=== PATIENT | male | born 1960 | race African-American/Black ===

== ENCOUNTER 2017-05-22 12:56 | Emergency (ER) | payer OTHER ==
[~2017-05-22] VITALS: Ht 188 cm; Wt 72.6 kg
[2017-05-22 13:21] VITALS: BP 129/85
[2017-05-22] MEDS ORDERED: Ipratropium 0.02% Inh Soln 2.5ml UD HHN ONE (13:30)
[2017-05-22] MEDS ORDERED: Albuterol ud Inhalation HHN ONE (13:30)
--- NOTE | 2017-05-22 13:31 | Emergency Room Report ---
History of Present Illness General Chief Complaint: Upper Respiratory Illness Source: Patient Present Illness HPI 56 YO Male presents to the ED c/o chronic cough with clear sputum production intermittently, with wheezing, nasal congestion x 4 weeks. pt. states he is a smoker. Patient states he is been having recurrent episodes of these symptoms for one year. pt. denies having a pcp, he states he visits ED's or urgent cares. Denies fevers or chills. Patient states he is usually given cough medication with inhaler. Patient denies abdominal pain, rashes, neck pain or stiffness, headache. Denies CP, swelling of the lower extremities, Palpitations , LOC, AMS, dizziness, Changes in Vision, Sensation, paresthesias, or a sudden severe headache. Allergies: Coded Allergies: No Known Allergies (Unverified , 05/22/17) Patient History Past Medical History: see triage record Past Surgical History: none Pertinent Family History: none Social History: Reports: smoking Immunizations: UTD Reviewed Nursing Documentation: PMH: Agreed, PSxH: Agreed Nursing Documentation-PMH Hx Cardiac Problems: No - broken foot and ankleon left Hx Gastrointestinal Problems: Yes Review of Systems All Other Systems: negative except mentioned in HPI Physical Exam Vital Signs Date Time Temp Pulse Resp B/P (MAP) Pulse Ox O2 Delivery O2 Flow Rate FiO2 05/22/17 13:07 97.7 106 20 129/85 98 Room Air Sp02 EP Interpretation: reviewed, normal General Appearance: no apparent distress, alert, GCS 15, non-toxic Head: normocephalic, atraumatic Eyes: bilateral eye normal inspection, bilateral eye PERRL ENT: hearing grossly normal, normal voice Neck: full range of motion, supple/symm/no masses Respiratory: no respiratory distress, no accessory muscle use, decreased breath sounds, wheezing - coarse wheezes Cardiovascular #1: regular rate, rhythm, no edema, normal capillary refill, tachycardia Gastrointestinal: normal bowel sounds, non tender, soft, no guarding, no rebound Rectal: deferred Musculoskeletal: back normal, gait/station normal, normal range of motion, non- tender Neurologic: alert, oriented x3, responsive, motor strength/tone normal, sensory intact, speech normal Psychiatric: judgement/insight normal, memory normal, mood/affect normal Skin: normal color, no rash, warm/dry, well hydrated Medical Decision Making PA Attestation Dr. Porter is my supervising Physician whom patient management has been discussed with. Diagnostic Impression: Primary Impression: COPD (chronic obstructive pulmonary disease) Qualified Codes: J42 - Unspecified chronic bronchitis ER Course 56 YO Male presents to the ED c/o chronic cough with clear sputum production intermittently, with wheezing, nasal congestion x 4 weeks. pt. states he is a smoker. Patient states he is been having recurrent episodes of these symptoms for one year. pt. denies having a pcp, he states he visits ED's or urgent cares. Denies fevers or chills. Patient states he is usually given cough medication with inhaler. Patient denies abdominal pain, rashes, neck pain or stiffness, headache. Denies CP, Palpitations, LOC, AMS, dizziness, Changes in Vision, Sensation, paresthesias, or a sudden severe headache. Ddx considered but are not limited to URI, pneumonia, PE, strep pharyngitis, meningitis. Vital signs: Pt.is afebrile VS are WNL, pt. has been saturating above 96% RA H&PE are most consistent with COPD with acute bronchitis ORDERS: -CXR: No consolidation, effusion, pneumothorax or acute cardiopulmonary findings per soft read in ED by Dr. Porter ED INTERVENTIONS: -Nebs HHN - Re-evaluation: pt. lung sounds have improved. -d/w pt. the importance of establishing himself with a pcp, and having pulmonology evaluation. d/w pt. smoking cessation or at minimum reduction. d/w pt. that he will be treated with conservative treatments with close outpatient follow up instructions. He is provided with a list of free/reduced cost clinic information. pt. is given return precautions for worsening of current symptoms, or new symptoms. DISCHARGE: At this time pt. is stable for d/c to home. Will provide printed patient care instructions, and any necessary prescriptions. Care plan and follow up instructions have been discussed with the patient prior to discharge. Last Vital Signs Date Time Temp Pulse Resp B/P (MAP) Pulse Ox O2 Delivery O2 Flow Rate FiO2 05/22/17 13:21 97.7 20 129/85 98 Room Air 05/22/17 13:21 106 Disposition: HOME, SELF-CARE Condition: Stable Scripts Cetirizine Hcl* (ZYRTEC*) 10 Mg Tablet 10 MG ORAL DAILY, #30 TAB 0 Refills Prov: Valeri Mojica 05/22/17 Guaifenesin (Guaifenesin) 1,200 Mg Tab.er.12h 1200 MG PO Q12HR for 10 Days, #20 TAB Prov: Valeri Mojica 05/22/17 Albuterol Sulfate* (ALBUTEROL SULFATE MDI*) 8.5 Gm Hfa.aer.ad 2 PUFF INH Q3H, #1 INH 0 Refills Prov: Valeri Mojica 05/22/17 Promethazine Hcl (PROMETHAZINE HCL*) 6.25 Mg/5 Ml Syrup 5 ML ORAL Q6H, #120 ML 0 Refills Prov: Valeri Mojica 05/22/17 Patient Instructions: Chronic Obstructive Pulmonary Disease Additional Instructions: Take medications as directed. Follow up with a Primary Care Provider in 3-5 days, even if your symptoms have resolved. --Please review list of primary care clinics, if you do not already have a primary care provider Return sooner to ED if new symptoms occur, or current symptoms become worse. - Please note that this Emergency Department Report was dictated using Inform Directproject engineering manager technology software, occasionally this can lead to erroneous entry secondary to interpretation by the dictation equipment. Valeri Mojica May 22, 2017 13:31
[2017-05-22] MEDS ORDERED: ALBUTEROL SULF8.5 GM INH (14:08)
[2017-05-22] MEDS ORDERED: GUAIFENESIN1200 MG PO (14:08)
[2017-05-22] MEDS ORDERED: PROMETHAZI6.25 MG/1 ORAL (14:08)
[2017-05-22] MEDS ORDERED: ZYRTEC10 MG ORAL (14:08)
[2017-05-22 14:19] VITALS: BP 127/86
[2017-05-22 14:21] VITALS: BP 127/86
--- NOTE | 2017-05-22 14:25 | Diagnostic Imaging Report ---
Indication: COUGH Technique: One view of the chest Comparison: none Findings: Calcified granuloma is seen in the left midlung. It is mildly hyperinflated. Lungs and pleural spaces are clear. Heart size is normal. The aorta is elongated tortuous and calcified. Impression: COPD changes No acute process
== END 2017-05-22 14:33 | disposition home or self-care (01) ==
LOC: EMR 14:00
DX: J44.9 Chronic obstructive pulmonary disease, unspecified (principal); J06.9 Acute upper respiratory infection, unspecified; F17.200 Nicotine dependence, unspecified, uncomplicated; Z87.19 Personal history of other diseases of the digestive system
CPT/HCPCS: 71010; 94640; 94664

== ENCOUNTER 2019-12-31 07:14 | Emergency (ER) | payer OTHER ==
[~2019-12-31] VITALS: Ht 188 cm; Wt 90.7 kg
[~2019-12-31 07:14] MED LIST: ALBUTEROL SULF8.5 GM INH; GUAIFENESIN1200 MG PO; PROMETHAZI6.25 MG/1 ORAL; ZYRTEC10 MG ORAL
[2019-12-31 07:18] VITALS: BP 135/99
--- NOTE | 2019-12-31 07:21 | NUR ---
ED Nurse Note: Pt was brought in by ambulance from the [facility] d/t foot pain. Per EMS pt has hx of toe amputation on RT; DM and substance abuse. VSS, on RA, afebrile on triage. Place on bed.
--- NOTE | 2019-12-31 07:50 | NUR ---
ED Nurse Note: Dr Franklin ordered for cast shoes for pt feet.
--- NOTE | 2019-12-31 07:51 | Emergency Room Report ---
History of Present Illness General Chief Complaint: Pain Source: Patient Present Illness HPI Disclaimer: Please note that this report is being documented using DRAGON technology. This can lead to erroneous entry secondary to incorrect interpretation by the dictating instrument. HPI: 59-year-old male history of bilateral toe amputations presents for evaluation of foot pain. Patient states he had his left pinky toe amputated approximately 1 year ago and has been wearing a postop shoe ever since. He had to move his postop shoe to the other foot as he lost his regular shoes. Today he had worsening pain in his left foot but denies any new injury. States he had previously been taking Brenton but now only uses ibuprofen sporadically. He is requesting a stronger pain medication. Also requesting debridement of his feet for the skin around them. Does not follow regularly with podiatry. Denies any recent skin breakdown, bleeding, bruising, fever, chills, rash, abscess or other changes. PMH: Bilateral foot infections PSH: Bilateral toe amputations Allergies: None reported Social Hx: None reported Allergies: Coded Allergies: No Known Allergies (Unverified , 05/22/17) COVID-19 Screening Contact w/high risk pt: No Recent Travel to affected area: No Experienced COVID-19 symptoms?: No Nursing Documentation-PMH Hx Gastrointestinal Problems: Yes Review of Systems All Other Systems: negative except mentioned in HPI Physical Exam Vital Signs Date Time Temp Pulse Resp B/P (MAP) Pulse Ox O2 Delivery O2 Flow Rate FiO2 12/31/19 07:10 99.0 90 19 135/99 (111) 99 Room Air General: Awake and alert, no acute distress HEENT: NC/AT. EOMI. Resp: Normal work of breathing Skin: Intact. No abrasions, laceration or rash over the exposed skin MSK: Normal tone and bulk. Moving all extremities. Amputations of the pinky toe on the left foot as well as the middle and fourth toe on the right foot. All surgical sites are well-healed, skin is intact, no fluctuance, no erythema, no purulence and no breakdown. No tenderness to palpation over the lower extremities. Significant callusing over both feet, dried skin but no ulcerations. Full range of motion at the ankles bilaterally. Neuro: Awake and alert. Mentating appropriately Medical Decision Making Diagnostic Impression: Primary Impression: Foot pain Additional Impression: Callus of foot ER Course Is a 59-year-old male presenting for evaluation of foot pain. Patient appears to have dry callused skin over the feet and does not follow regular podiatry but there is no evidence of infection, abscess, skin breakdown or new injury reported. He does require new shoes. He is also requesting pain medication refill of his Brenton. I discussed with him that he should be using NSAIDs and follow-up with podiatry for routine foot care. Will refer him to podiatry, prescribed NSAIDs and provide him with new shoes. Do not believe he requires emergent labs or imaging at this time. And follow-up on an outpatient basis. Last Vital Signs Date Time Temp Pulse Resp B/P (MAP) Pulse Ox O2 Delivery O2 Flow Rate FiO2 12/31/19 07:18 99.0 19 135/99 99 Room Air 12/31/19 07:10 90 Disposition: HOME, SELF-CARE Condition: Stable Referrals: [facility],REFERRING (PCP) Chang Franklin MD Dec 31, 2019 07:51
[2019-12-31] MEDS ORDERED: IBUPROFEN600 M1 ORAL (07:54)
--- NOTE | 2019-12-31 08:00 | NUR ---
ED Nurse Note: Lasara and juice provided to patient.
[2019-12-31 08:08] VITALS: BP 123/70
--- NOTE | 2019-12-31 08:08 | NUR ---
ER DISCHARGE NOTE: Patient is cleared to be discharged per ERMD, pt is aox4, on room air, with stable vital signs. pt was given dc and prescription instructions, care clinic list/resource list provided. pt was able to verbalize understanding, pt id band removed. pt is able to ambulate with steady gait. pt took all belongings.
== END 2019-12-31 08:08 | disposition home or self-care (01) ==
LOC: EDBD 07:14 → EMR 07:43
DX: M25.572 Pain in left ankle and joints of left foot (principal); Z89.422 Acquired absence of other left toe(s); Z89.421 Acquired absence of other right toe(s)
CPT/HCPCS: 99282

== ENCOUNTER 2020-03-01 09:57 | Emergency (ER) | payer MEDICAID, OTHER ==
[~2020-03-01] VITALS: Ht 185.4 cm; Wt 79.4 kg
[~2020-03-01 09:57] MED LIST changes: +IBUPROFEN600 M1 ORAL
--- NOTE | 2020-03-01 10:19 | NUR ---
ED Nurse Note: Pt from street walked in due to bilateral foot infection. Noted open wounds and very strong foul smell coming from feet. No evident drainage. AAO x4, ambulates with steady gait.
[2020-03-01] MEDS ORDERED: CEPHALEXIN500 MG ORAL (10:20)
[2020-03-01] MEDS ORDERED: BACTRIM DS TAB1 EAC1 ORAL (10:20)
--- NOTE | 2020-03-01 10:26 | Emergency Room Report ---
History of Present Illness General Chief Complaint: Lower Extremity Injury Source: Patient Present Illness HPI Patient is a 59-year-old male past medical history of chronic wound to his right foot status post 2 toe amputations in the past who presents to the ER complaining of chronic wound and requesting some wound care. Patient is also homeless and states that he wants to have towels to clean himself. He denies any fever or chills. He denies any new trauma to his foot. He states that the wound has been there for years and years and is unchanged. He states that he has not been on antibiotics for a long long time. He denies any chest pain, shortness of breath or cough. Allergies: Coded Allergies: No Known Allergies (Unverified , 05/22/17) COVID-19 Screening Contact w/high risk pt: No Recent Travel to affected area: No Experienced COVID-19 symptoms?: No COVID-19 Testing performed INSTRUMENT REPAIRER STEAM PLANT: No Patient History Reviewed Nursing Documentation: PMH: Agreed; PSxH: Agreed Nursing Documentation-PMH Hx Gastrointestinal Problems: Yes Review of Systems All Other Systems: negative except mentioned in HPI Physical Exam Vital Signs Date Time Temp Pulse Resp B/P (MAP) Pulse Ox O2 Delivery O2 Flow Rate FiO2 03/01/20 10:14 98.2 78 18 143/67 (92) 96 Room Air Sp02 EP Interpretation: reviewed, normal General Appearance: no apparent distress, alert, GCS 15, non-toxic, other - Poorly groomed Head: normocephalic, atraumatic Eyes: bilateral eye normal inspection, bilateral eye PERRL ENT: hearing grossly normal, normal pharynx, no angioedema, normal voice Neck: full range of motion, supple/symm/no masses Respiratory: chest non-tender, lungs clear, normal breath sounds, speaking full sentences Cardiovascular #1: regular rate, rhythm, no edema Gastrointestinal: normal bowel sounds, non tender, soft, non-distended, no guarding, no rebound Rectal: deferred Genitourinary: no CVA tenderness Musculoskeletal: other - Right foot chronic wound status post 2 toe amputations open sores chronic deformity no discharge no erythema warm extremity Neurologic: cup setter lockstitch III-XII nml as tested Psychiatric: no suicidal/homicidal ideation Skin: no rash Lymphatic: no adenopathy Medical Decision Making Diagnostic Impression: Primary Impression: Chronic wound of extremity ER Course Local wound care performed. Patient given Bactrim as well as Keflex. I have given him outpatient resources for chronic wound care. After discussing risks and benefits of further diagnostics, treatment plans, as well as indications for and risks of admission, the patient is agreeable to being discharged home. I have explained that their evaluation and treatment in the emergency department today is an important step towards them achieving better health but that their evaluation today is not intended to replace further evaluation and treatment by a physician in their local clinic. I have explained that while the current findings suggest no immediate life threatening emergency they will require further evaluation and treatment by a physician of their choice in their area. They understand that it will be necessary for them to review the final reports of their ED visit with their clinic physician. We have reviewed indications for return to the Emergency Department. I have explained that additional time may need to pass and/or additional testing as an outpatient may be necessary before a definitive diagnosis can be made. They tell me they are willing to follow up as instructed within the timeframe I recommend. They appear to understand what we discussed. Additionally they understand that if they are unable to be seen by an outpatient physician they are welcome, and in fact should, return to the Emergency Department for a repeat evaluation. The patient is stable at time of discharge. Last Vital Signs Date Time Temp Pulse Resp B/P (MAP) Pulse Ox O2 Delivery O2 Flow Rate FiO2 03/01/20 10:14 98.2 78 18 143/67 (92) 96 Room Air Disposition: HOME, SELF-CARE Condition: Stable Scripts Trimethoprim/Sulfamethoxazole 160/800* (BACTRIM DS TABLET*) 1 Each Tablet 1 TAB ORAL Q12H for 14 Days, #28 TAB 0 Refills Prov: Rubi Ryder M.D. 03/01/20 Cephalexin* (KEFLEX*) 500 Mg Capsule 500 MG ORAL EVERY 6 HOURS for 14 Days, CAP Prov: Rubi Ryder M.D. 03/01/20 Referrals: [facility] Patient Instructions: Dressing Change, [id number] Additional Instructions: The patient was provided with discharge instructions, notified to follow-up with a primary care doctor and or specialist in the next 24-48 hours, and to return to the ED if they have worsening of their symptoms. Please note that this report is being documented using Conzoom technology. This can lead to erroneous entry secondary to incorrect interpretation by the dictating instrument. Rubi Ryder M.D. Mar 01, 2020 10:25
[2020-03-01] MEDS ORDERED: Bactrim-DS 1 tab ORAL ONE (10:30)
[2020-03-01] MEDS ORDERED: Cephalexin 250mg/5ml Susp 100mL Bottle ORAL ONE (10:30)
[2020-03-01] MEDS ORDERED: Cephalexin 500mg cap ORAL ONE (10:30)
[2020-03-01 10:39] VITALS: BP 141/75
--- NOTE | 2020-03-01 10:39 | NUR ---
ER DISCHARGE NOTE: Patient is cleared to be discharged per ERMD, pt is aox4, on room air, with stable vital signs. pt was given dc and prescription instructions, pt was able to verbalize understanding, pt id band removed. pt is able to ambulate with steady gait. pt took all belongings.
== END 2020-03-01 10:40 | disposition home or self-care (01) ==
LOC: EMR 10:30
DX: S91.301A Unspecified open wound, right foot, initial encounter (principal); X58.XXXA Exposure to other specified factors, initial encounter; Y92.9 Unspecified place or not applicable; Z59.0 Homelessness; Z89.421 Acquired absence of other right toe(s)
CPT/HCPCS: 99282

== ENCOUNTER 2020-03-07 10:46 | Emergency (ER) | payer MEDICAID, OTHER ==
[~2020-03-07] VITALS: Ht 180.3 cm; Wt 75.7 kg
[~2020-03-07 10:46] MED LIST changes: +BACTRIM DS TAB1 EAC1 ORAL; +CEPHALEXIN500 MG ORAL
--- NOTE | 2020-03-07 11:19 | NUR ---
ED Nurse Note: Pt walked into ED for R foot pain. Pt was in ED recently but states he lost prescription. R foot has multiple open wounds with no drainage, foul odor. Pt is alert and ox4, ambulatory.
[2020-03-07 11:24] VITALS: BP 137/69
[2020-03-07] MEDS ORDERED: Bactrim-DS 1 tab ORAL ONE (12:15)
[2020-03-07] MEDS ORDERED: Cephalexin 250mg/5ml Susp 100mL Bottle ORAL ONE (12:15)
--- NOTE | 2020-03-07 12:45 | Emergency Room Report ---
History of Present Illness General Chief Complaint: Medication Refill Present Illness HPI 59-year-old male with history of chronic wounds on bilateral feet was seen here few days ago and was given prescription for Bactrim DS and Keflex here requesting a medication refill as he reports that he lost the medication. Denies any fall or injury. Is requesting refills of this medication here. Also reports that he lost his IV and does not know how to get a new ID. Patient is homeless. Denies any chest pain, shortness of breath, headache, fever and chills. Has not taken medication for symptom relief. Patient was given prescription for Bactrim DS and Keflex and came back later stating that he lost his prescription. Was given another copy of his prescriptions. Allergies: Coded Allergies: No Known Allergies (Unverified , 05/22/17) COVID-19 Screening Contact w/high risk pt: No Recent Travel to affected area: No Experienced COVID-19 symptoms?: No COVID-19 Testing performed BROADCAST CHIEF ENGINEER: No Patient History Past Medical History: see triage record Past Surgical History: none Pertinent Family History: none Reviewed Nursing Documentation: PMH: Agreed; PSxH: Agreed Nursing Documentation-PMH Hx Gastrointestinal Problems: Yes Review of Systems All Other Systems: negative except mentioned in HPI Physical Exam Vital Signs Date Time Temp Pulse Resp B/P (MAP) Pulse Ox O2 Delivery O2 Flow Rate FiO2 03/07/20 10:52 98.4 87 20 143/67 (92) 95 Room Air Sp02 EP Interpretation: reviewed, normal General Appearance: no apparent distress, alert, GCS 15, non-toxic Head: normocephalic, atraumatic Eyes: bilateral eye normal inspection, bilateral eye PERRL ENT: hearing grossly normal, normal pharynx, no angioedema, normal voice Neck: full range of motion, supple/symm/no masses Respiratory: chest non-tender, lungs clear, normal breath sounds, speaking full sentences Cardiovascular #1: regular rate, rhythm, no edema Gastrointestinal: soft Rectal: deferred Neurologic: alert, oriented Psychiatric: judgement/insight normal, memory normal, mood/affect normal, no suicidal/homicidal ideation Skin: other - Chronic wound and ulcers on both feet Lymphatic: no adenopathy Medical Decision Making PA Attestation All my diagnosis and treatment plans were reviewed ad discussed with my supervising physician Dr. Porter Diagnostic Impression: Primary Impression: Encounter for medication refill ER Course 59-year-old male with history of chronic wounds on bilateral feet was seen here few days ago and was given prescription for Bactrim DS and Keflex here requesting a medication refill as he reports that he lost the medication. Denies any fall or injury. Is requesting refills of this medication here. Also reports that he lost his IV and does not know how to get a new ID. Patient is homeless. Denies any chest pain, shortness of breath, headache, fever and chills. Has not taken medication for symptom relief. Patient was given prescription for Bactrim DS and Keflex and came back later stating that he lost his prescription. Was given another copy of his prescriptions. Ddx considered but are not limited to : Cellulitis, DVT, superficial infection, abscess, chronic wound ulcers on feet Vital signs: are WNL, pt. is afebrile H&PE are most consistent with: Encounter for medication refill, for chronic ulcers in feet ORDERS: Bactrim DS, Keflex ED INTERVENTIONS: Bactrim DS, Keflex DISCHARGE: At this time pt. is stable for d/c to home. Will provide printed patient care instructions, and any necessary prescriptions. Care plan and follow up instructions have been discussed with the patient prior to discharge. Patient already had appendectomy done on the feet, follow-up with developmental training counselor and nursing specialist, was given list of clinics to follow-up with, worsening symptoms return to the emergency room. Last Vital Signs Date Time Temp Pulse Resp B/P (MAP) Pulse Ox O2 Delivery O2 Flow Rate FiO2 03/07/20 11:24 98.4 86 18 137/69 97 Room Air Disposition: HOME, SELF-CARE Condition: Stable Scripts Trimethoprim/Sulfamethoxazole 160/800* (BACTRIM DS TABLET*) 1 Each Tablet 1 TAB ORAL Q12H for 14 Days, #28 TAB 0 Refills Prov: Nilson Brannon 03/07/20 Cephalexin* (KEFLEX*) 500 Mg Capsule 500 MG ORAL EVERY 6 HOURS for 14 Days, CAP Prov: Nilson Brannon 03/07/20 Referrals: NON PHYSICIAN (PCP) Patient Instructions: Medicine Refill at the Emergency Department Nilson Brannon Mar 07, 2020 12:45
[2020-03-07] MEDS ORDERED: CEPHALEXIN500 MG ORAL ×2 (12:46→17:01)
[2020-03-07] MEDS ORDERED: BACTRIM DS TAB1 EAC1 ORAL ×2 (12:46→17:01)
--- NOTE | 2020-03-07 12:57 | NUR ---
ER DISCHARGE NOTE: Patient is cleared to be discharged per ERMD, pt is aox4, on room air, with stable vital signs. pt was given dc and prescription instructions, pt was able to verbalize understanding, pt id band removed. pt is able to ambulate with steady gait. pt took all belongings. Pt provided resources.
[2020-03-07 12:58] VITALS: BP 132/67
== END 2020-03-07 12:57 | disposition home or self-care (01) ==
LOC: EMR 11:54
DX: Z76.0 Encounter for issue of repeat prescription (principal); Z59.0 Homelessness; L97.529 Non-pressure chronic ulcer of other part of left foot with unspecified severity; L97.519 Non-pressure chronic ulcer of other part of right foot with unspecified severity
CPT/HCPCS: 99282

== ENCOUNTER 2020-03-24 09:18 | Emergency (ER) | payer MEDICAID, OTHER ==
[~2020-03-24] VITALS: Ht 188 cm; Wt 77.1 kg
[2020-03-24 09:30] VITALS: BP 149/98
[2020-03-24] MEDS ORDERED: Morphine Sulfate 2mg/ml Inj(IV/IM USE ONLY) IVP ONE (09:30)
[2020-03-24] MEDS ORDERED: Acetaminophen 500mg (ES) tab ORAL ONE (09:30)
--- NOTE | 2020-03-24 09:50 | Emergency Room Report ---
History of Present Illness General Chief Complaint: Flu Like Symptoms Source: Patient, EMS Present Illness HPI Disclaimer: Please note that this report is being documented using [employer] technology. This can lead to erroneous entry secondary to incorrect interpretation by the dictating instrument. HPI: 59-year-old male history of chronic right lower extremity wound presents with wound to the right lower extremity. He presents with pain and fever. He states is been present for 2 days. Also reports a cough. Patient febrile on arrival. No vomiting or diarrhea. Patient currently not on any medications. PMH: Patient denies any known medical history PSH: Reviewed Social Hx: Patient is a smoker drinks alcohol denied illicit drug use Allergies: Coded Allergies: No Known Allergies (Unverified , 05/22/17) COVID-19 Screening Contact w/high risk pt: No Recent Travel to affected area: No Experienced COVID-19 symptoms?: Yes COVID-19 Testing performed [employer]ACH[employer]: No Patient History Reviewed Nursing Documentation: PMH: Agreed; PSxH: Agreed Nursing Documentation-PMH Hx Gastrointestinal Problems: Yes Review of Systems All Other Systems: negative except mentioned in HPI Physical Exam Vital Signs Date Time Temp Pulse Resp B/P (MAP) Pulse Ox O2 Delivery O2 Flow Rate FiO2 03/24/20 09:19 101.7 143 20 149/98 (115) 98 Room Air Sp02 EP Interpretation: reviewed, normal General Appearance: well appearing, other - Poorly groomed Head: normocephalic, atraumatic Eyes: bilateral eye PERRL, bilateral eye EOMI ENT: hearing grossly normal, moist mucus membranes Neck: full range of motion, supple Respiratory: lungs clear, normal breath sounds, no rhonchi, no respiratory distress, no retraction, no wheezing Cardiovascular #1: normal peripheral pulses, no murmur, tachycardia Gastrointestinal: non tender, soft, non-distended, no guarding Musculoskeletal: other - Right lower extremity with chronic wound noted, warmth , swelling, soiled dressing with multiple toes amputated Neurologic: alert, oriented x3, no focal defects Skin: normal color, warm/dry Procedures Critical Care Time Critical Care Time Critical care is made the patient due to presentation with sepsis requiring my acute intervention. Critical care time is 34 minutes and excludes procedures Medical Decision Making Diagnostic Impression: Primary Impression: Cellulitis of right lower extremity Additional Impression: Sepsis ER Course MDM: Differential diagnosis included but not limited to cellulitis, chronic right foot infection, COVID-19, pneumonia, alcohol abuse Clinical course-IV, IV fluids, septic work-up initiated. Lactate was elevated. White blood cell count normal. Patient febrile in the ER given Tylenol and ibuprofen. Broad-spectrum antibiotics were given for concern for cellulitis. Wound was contaminated. COVID testing was negative. Chest x-ray reviewed showed no obvious infiltrate. Due to insurance patient will be transferred to contracted hospital. Patient was transferred via [facility]. Patient accepted by Dr. Sanders Labs - Laboratory Tests Test 03/24/20 09:30 White Blood Count 7.9 K/UL (4.8-10.8) Red Blood Count 3.63 M/UL (4.70-6.10) L Hemoglobin 11.7 G/DL (14.2-18.0) L Hematocrit 36.7 % (42.0-52.0) L Mean Corpuscular Volume 101 FL (80-99) H Mean Corpuscular Hemoglobin 32.1 PG (27.0-31.0) H Mean Corpuscular Hemoglobin Concent 31.8 G/DL (32.0-36.0) L Red Cell Distribution Width 16.8 % (11.6-14.8) H Platelet Count 138 K/UL (150-450) L Mean Platelet Volume 6.6 FL (6.5-10.1) Neutrophils (%) (Auto) % (45.0-75.0) Lymphocytes (%) (Auto) % (20.0-45.0) Monocytes (%) (Auto) % (1.0-10.0) Eosinophils (%) (Auto) % (0.0-3.0) Basophils (%) (Auto) % (0.0-2.0) Differential Total Cells Counted 100 Neutrophils % (Manual) 85 % (45-75) H Lymphocytes % (Manual) 7 % (20-45) L Monocytes % (Manual) 3 % (1-10) Eosinophils % (Manual) 0 % (0-3) Basophils % (Manual) 0 % (0-2) Band Neutrophils 5 % (0-8) Platelet Estimate Decreased L Platelet Morphology Normal Hypochromasia 1+ Anisocytosis 1+ Macrocytosis 1+ Sodium Level 130 MMOL/L (136-145) L Potassium Level 3.5 MMOL/L (3.5-5.1) Chloride Level 92 MMOL/L (98-107) L Carbon Dioxide Level 20 MMOL/L (21-32) L Anion Gap 19 mmol/L (5-15) H Blood Urea Nitrogen 10 mg/dL (7-18) Creatinine 1.1 MG/DL (0.55-1.30) Estimated Glomerular Filtration Rate > 60 mL/min (>60) Glucose Level 96 MG/DL (74-106) Lactic Acid Level 8.90 mmol/L (0.4-2.0) H Calcium Level 8.7 MG/DL (8.5-10.1) Magnesium Level 1.6 MG/DL (1.8-2.4) L Total Bilirubin 0.7 MG/DL (0.2-1.0) Aspartate Amino Transferase (AST) 90 U/L (15-37) H Alanine Aminotransferase (ALT) 52 U/L (12-78) Alkaline Phosphatase 91 U/L (46-116) Troponin I 0.000 ng/mL (0.000-0.056) Total Protein 8.4 G/DL (6.4-8.2) H Albumin 3.3 G/DL (3.4-5.0) L Globulin 5.1 g/dL Albumin/Globulin Ratio 0.6 (1.0-2.7) L Serum Alcohol 139 mg/dL Microbiology Date/Time Source Procedure Growth Status 03/24/20 09:30 Nasopharynx SARS-CoV-2 RdRp Gene Assay - Final Complete On reevaluation: Sepsis assessment patient was not hypotensive after appropriate IV fluid bolus and did not require further vasopressors Plan-patient be transferred to [facility] for admission EKG Diagnostic Results Rate: tachycardiac Rhythm: other - Sinus tachycardia Other Impression Left atrial enlargement, poor baseline, abnormal EKG Rhythm Strip Diag. Results EP Interpretation: yes Rate: 134 Rhythm: no ectopy, other - Sinus tachycardia Chest X-Ray Diagnostic Results Chest X-Ray Diagnostic Results : Chest X-Ray Ordered: Yes # of Views/Limited/Complete: 1 View Indication: Shortness of Breath EP Interpretation: Yes Interpretation: no consolidation, no effusion, no pneumothorax Impression: No acute disease Electronically Signed by: Andrey Pierce MD Last Vital Signs Date Time Temp Pulse Resp B/P (MAP) Pulse Ox O2 Delivery O2 Flow Rate FiO2 7/23/20 09:19 101.7 143 20 149/25 (215) 19 Room Air Status: improved Disposition: SHORT-TERM HOSP Condition: Serious Andrey Pierce M.D. Mar 24, 2020 09:50
[2020-03-24 09:59] LABS: HEMATOCRIT 36.7 % (42.0-52.0); HEMOGLOBIN 11.7 G/DL (14.2-18.0); MEAN CORPUSCULAR VOLUME 101 FL (80-99); PLATELET COUNT 138 K/UL (150-450); RED BLOOD COUNT 3.63 M/UL (4.70-6.10); RED CELL DISTRIBUTION WIDTH 16.8 % (11.6-14.8); WHITE BLOOD COUNT 7.9 K/UL (4.8-10.8)
[2020-03-24] MEDS ORDERED: Vancomycin 500 MG in NS 110 ML IVPB ONE (10:00)
[2020-03-24] MEDS ORDERED: Piperacillin/Tazobactam 3.375 GM in NS 110 ML IVPB ONE (10:00)
[2020-03-24 10:05] LABS: ANION GAP 19 mmol/L (5-15); BLOOD UREA NITROGEN 10 mg/dL (7-18); CARBON DIOXIDE 20 MMOL/L (21-32); CHLORIDE 92 MMOL/L (98-107); CREATININE 1.1 MG/DL (0.55-1.30); POTASSIUM 3.5 MMOL/L (3.5-5.1); SODIUM 130 MMOL/L (136-145)
[2020-03-24 10:06] LABS: CALCIUM 8.7 MG/DL (8.5-10.1)
[2020-03-24 10:10] LABS: ALANINE AMINOTRANSFERASE 52 U/L (12-78); ALBUMIN 3.3 G/DL (3.4-5.0); ALBUMIN/GLOBULIN RATIO 0.6 (1.0-2.7); ALKALINE PHOSPHATASE 91 U/L (46-116); ASPARTATE AMINO TRANSFERASE 90 U/L (15-37); BILIRUBIN,TOTAL 0.7 MG/DL (0.2-1.0)
[2020-03-24 10:52] VITALS: BP 155/92
[2020-03-24 10:55] VITALS: BP 117/61
[2020-03-24 12:45] VITALS: BP 105/61
[2020-03-24 13:30] VITALS: BP 108/66
--- NOTE | 2020-03-24 13:32 | Diagnostic Imaging Report ---
Indication: Shortness of breath Technique: One view of the chest Comparison: 05/22/2017 Findings: No acute infiltrates, effusions, or congestion. Tortuous calcified aorta. Normal heart size. Upper mediastinum unremarkable. There is a calcified granuloma in the left midlung. No significant change Impression: No acute process.
[2020-03-24 13:53] LABS: APPEARANCE,URINE CLEAR; BILIRUBIN, URINE NEGATIVE (NEGATIVE); COLOR,URINE YELLOW; GLUCOSE, URINE (UA) NEGATIVE (NEGATIVE); KETONES,URINE 1+ (NEGATIVE); LEUKOCYTE ESTERASE ,URINE NEGATIVE (NEGATIVE); NITRITE,URINE NEGATIVE (NEGATIVE); PH,URINE 6 (4.5-8.0); PROTEIN,URINE 2+ (NEGATIVE); UROBILINOGEN,URINE 1 MG/DL (0.0-1.0)
== END 2020-03-24 13:30 | disposition short-term general hospital (02) ==
LOC: EDBD 09:18 → EMR 09:45
DX: A41.9 Sepsis, unspecified organism (principal); L03.115 Cellulitis of right lower limb; R05 Cough; F17.200 Nicotine dependence, unspecified, uncomplicated; Z72.89 Other problems related to lifestyle
CPT/HCPCS: 36415; 71045; 80053; 80307; 81003; 83605; 83735; 84484; 85007; 85025; 87040; 93005; 96365; 96368; 96375; G0480; J2270; J2543; J3370; J7030; U0002; Z7502; 99291